=== PATIENT | female | born 1995 | race Caucasian/White ===

== ENCOUNTER 2021-07-20 18:19 | Emergency (ER) | payer OTHER, SELFPAY ==
[~2021-07-20] VITALS: Ht 167.6 cm; Wt 81.6 kg
[2021-07-20 19:00] VITALS: BP 158/80
--- NOTE | 2021-07-20 19:17 | ER.PDOC ---
General Chief Complaint: Headache Stated Complaint: POSSIBLE COVID,FEVER,COUGH Time seen by MD: 19:14 Source: patient Exam Limitations: no limitations History of Present Illness Initial Comments This is a 25-year-old female comes to the emergency department with body aches, head pressure, fever and runny nose, sore throat for the past 2 days. No prior history of COVID-19 and the patient has not received the immunizations. She was exposed to a family member with Covid last week. Severity/Quality: moderate Associated Symptoms: fever/chills, nasal congestion, weakness Review of Systems Constitutional: denies no symptoms reported, denies see HPI; chills; denies diaphoresis; fever, malaise; denies weakness, denies other Eyes: denies no symptoms reported, denies see HPI, denies blindness, denies blurred vision, denies drainage, denies decreased acuity, denies foreign body sensation, denies inflammation, denies pain, denies photophobia, denies previous injury, denies shadows, denies tunnel vision, denies vision change, denies contact lenses, denies glasses, denies other Ears, Nose, Mouth, Throat: denies no symptoms reported, denies see HPI, denies ear pain, denies ear discharge, denies nose pain; nose discharge; denies epistaxis, denies mouth pain, denies mouth swelling, denies loose teeth; throat pain, throat swelling Respiratory: denies no symptoms reported, denies see HPI; cough; denies orthopnea, denies shortness of breath, denies stridor, denies wheezing, denies other Cardiovascular: denies no symptoms reported, denies see HPI, denies chest pain, denies edema, denies palpitations, denies syncope, denies other Gastrointestinal: denies no symptoms reported, denies see HPI, denies abdominal pain, denies constipation, denies diarrhea, denies nausea, denies vomiting, denies other Genitourinary: denies no symptoms reported, denies see HPI, denies discharge, denies dysuria, denies frequency, denies hematuria, denies pain, denies other Musculoskeletal: denies no symptoms reported, denies see HPI, denies back pain, denies gout, denies joint pain, denies joint swelling, denies muscle pain, denies muscle stiffness, denies neck pain, denies other Skin: denies no symptoms reported, denies see HPI, denies change in color, denies change in hair/nails, denies dryness, denies lesions, denies lumps, denies rash, denies other Psychiatric/Neurological: denies no symptoms reported, denies see HPI, denies anxiety, denies depressed, denies emotional problems, denies headache, denies numbness, denies paresthesia, denies pre-existing deficit, denies seizure, denies tingling, denies tremors, denies weakness, denies other All Other Systems: Reviewed and Negative Results/Orders Results/Orders Orders - DINAH LOMBARDI MD Covid19 Antigen Tabitha Lindquist (07/20/21 19:17) Vital Signs Date Time Temp Pulse Resp B/P (MAP) Pulse Ox O2 Delivery O2 Flow Rate FiO2 07/20/21 19:38 99.9 91 18 158/80 (106) 98 Room Air 07/20/21 19:18 99.9 91 18 07/20/21 19:00 99.9 91 18 98 Laboratory Tests Test 07/20/21 19:17 SARS-CoV-2 Antigen (Rapid) POSITIVE (NEGATIVE) *A ER DEPART Departure Time of Disposition: 20:16 Disposition: 01 HOME / SELF CARE / HOMELESS Impression: Primary Impression: COVID Condition: Stable Patient Instructions: COVID Referrals: PCP,UNKNOWN (PCP) PRIMARY CARE PROVIDER Additional Instructions: Drink plenty of fluids, take ibuprofen and Tylenol for fevers. You can take vitamin C, vitamin D and zinc as well as take a baby aspirin a day to prevent any clotting. Comments Cheratussin AC given Duration or Time Spent with Pa: DINAH Galloway MD Jul 20, 2021 19:17
[2021-07-20 19:18] VITALS: BP 158/80
[2021-07-20 19:38] VITALS: BP 158/80
== END 2021-07-20 20:32 | disposition home or self-care (01) ==
LOC: ER 18:19
DX: U07.1 COVID-19 (principal)
CPT/HCPCS: 87426; 99283; 99284